=== PATIENT | female | born 1970 | race Caucasian/White ===

== ENCOUNTER 2017-08-15 03:11 | Inpatient (IN) ==
[2017-08-15] MEDS ORDERED: MAG-AL + SIM ORAL LIQUID 30ml PO PRN (04:34)
[2017-08-15] MEDS ORDERED: IBUPROFEN 800 MG TABLET PO PRN (04:34)
[2017-08-15] MEDS ORDERED: ACETAMINOPHEN 500 MG TABLET PO PRN (04:34)
[2017-08-15] MEDS ORDERED: HYDROCORTISONE 2.5% CREAM 30gm RECTALLY PRN (04:34)
[2017-08-15] MEDS ORDERED: DiphenhydrAMINE 25 MG CAPSULE PO PRN (04:34)
[2017-08-15] MEDS ORDERED: CALCIUM CARBONATE Chewable 500mg TABLET PO PRN (04:34)
[2017-08-15 06:45] VITALS: RESP 20
[2017-08-15] MEDS ORDERED: FERROUS SULFATE 324 MG TABLET PO SCH (09:00)
[2017-08-15] MEDS ORDERED: DOCUSATE CALCIUM 240 MG CAPSULE PO SCH (09:00)
[2017-08-15 10:43] VITALS: BMI 27.4
[2017-08-15] MEDS ORDERED: HYDROCODONE/APAP 5mg/325mg TABLET PO PRN (11:04)
[2017-08-15] MEDS ORDERED: RHO(D) IMMUNE GLOBULIN 300 MCG/2 ML INJECTION IM ONE (11:17)
--- NOTE | 2017-08-15 11:39 | OB/GYN Progress Note ---
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 Baby in [facility], suspected Trisomy 21. Awaiting patient's record from [facility]. Will plan dismissal later today. If records not available, will redraw OB labs here.
--- NOTE | 2017-08-15 11:58 | Labor and Delivery Note ---
DATE 08/15/2017 Ms. Stern is a 47-year-old G7 P now 7 who reports having received her care at [facility] in [place]. She presented to [facility] this morning and proceeded to very quickly deliver in the bed in the presence of the nurse. I received a stat page immediately after this requesting my presence as the baby had thick meconium. I arrived shortly thereafter. Placenta had already delivered and baby was in special care nursery being attended by Dr. Doherty and her team. The patient was lying in bed comfortably, her fundus was firm and nontender. I inspected the perineum. It was intact. Placenta grossly appears normal and we sent for pathology. We will request her records from [facility] and order appropriate followup labs. As they are available, I will review those and I will make changes to this note as indicated after they are available. OLIVA
[2017-08-15 14:52] VITALS: BP 120/58; PULSE 68; TEMP 98.1
--- NOTE | 2017-08-15 17:22 | History and Physical ---
CHIEF COMPLAINT Precipitous delivery. HISTORY OF PRESENT ILLNESS Mrs. Stern is a 47-year-old G8, P6 now 7, AB1, who presented to [facility] early this morning and very quickly delivered a liveborn female with heavy thick meconium. The baby subsequently was transferred to [facility] for care and is suspected to have trisomy 21. We have just received her care records from [facility]. At the time of this dictation , the patient is and is doing well. PAST MEDICAL HISTORY Significant for advanced maternal age, no surgeries, no major medical illnesses. ALLERGIES No known drug allergies. MEDICATIONS Include vitamins and a low dose aspirin. SOCIAL HISTORY The patient is a nonsmoker and denies alcohol use. FAMILY HISTORY Noncontributory. PHYSICAL EXAMINATION Physical exam is in the EMR. At this time, her medical records are reviewed and the pertinent labs entered into EMR. We will plan to continue her care and then dismiss so that she can go to her baby when she is stable for that. OLIVA
== END 2017-08-15 14:35 | disposition home or self-care (01) | DRG 775 ==
LOC: OBOBS 03:11 → MC 03:12
PROVIDERS: ADMIT Obstetrics & Gynecology; ATTEND Obstetrics & Gynecology